=== PATIENT | female | born 1990 | race Two or more races ===

== ENCOUNTER 2020-03-07 11:46 | Inpatient (IN) | payer BC, MEDICAID ==
[~2020-03-07] VITALS: Ht 172.7 cm; Wt 168.7 kg
[~2020-03-07 11:46] MED LIST: ATEN50TA; FERR-7; LISINOPRIL-HCTZ; NAPR250T74; PREN-96 PO
[2020-03-07 12:50] LABS: Basophils # (auto) 0 10 ^3/uL (0-0.2); Basophils % (auto) 0.1 % (0.0-2.0); Eosinophils # (auto) 0 10 ^3/uL (0-0.8); Hematocrit 39.8 % (36.0-46.0); Hemoglobin 13.1 g/dL (12.2-16.2); Lymphocytes # (auto) 0.9 10 ^3/uL (0.4-5.4); Mean Corpuscular Hemoglobin 28.7 pg (28.0-32.0); Mean Corpuscular Volume 87.1 fL (80.0-100.0); Monocytes # (auto) 1.1 10 ^3/uL (0-1.3); Monocytes % (auto) 7.7 % (0.0-12.0); Neutrophils # (auto) 12.6 10 ^3/uL (1.6-8.6); Neutrophils % (auto) 86.2 % (37.0-80.0); Platelet Count (auto) 203 10^3/uL (140-450); Red Blood Cells 4.57 10^6/uL (4.0-5.20); Red Cell Distribution Width 14.7 % (11.8-14.3); White Blood Cell 14.7 10^3/uL (4.4-10.8)
[2020-03-07 13:02] LABS: Albumin 2.9 g/dL (3.4-5.0); Anion Gap 3 (5-15); Blood Urea Nitrogen 7 mg/dL (7-18); Carbon Dioxide 29 mmol/L (21-32); Chloride 102 mmol/L (98-107); Glucose 146 mg/dL (74-106); Potassium 4.1 mmol/L (3.5-5.1); Sodium 134 mmol/L (136-145)
[2020-03-07 13:07] LABS: Alanine Aminotransferase 32 U/L (13-56); Alkaline Phosphatase 78 U/L (45-117); Aspartate Aminotransferase 24 U/L (15-37); BUN/Creatinine Ratio 12.3; Bilirubin, Total 0.3 mg/dL (0.2-1.0); Calcium 7.8 mg/dL (8.5-10.1); GFR African American 159 mL/min; GFR Non-African American 131 mL/min; Total Protein 7.4 g/dL (6.4-8.2)
[2020-03-07] MEDS ORDERED: ZINC SULFATE 220mg CAP or TAB PO ONE (15:00)
[2020-03-07] MEDS ORDERED: DexAMETHasone 4 MG TAB PO ONE (15:00)
[2020-03-07] MEDS ORDERED: ASCORBIC ACID 500 MG TAB PO ONE (15:00)
[2020-03-07] MEDS ORDERED: AZITHROMYCIN 500MG/ 250ML 250 ML IV ONE (15:00)
[2020-03-07] MEDS ORDERED: DOCUSATE CALCIUM 240 MG CAP PO PRN (17:15)
[2020-03-07] MEDS ORDERED: NITROGLYCERIN 0.4 MG SL TAB SL PRN (17:15)
[2020-03-07] MEDS ORDERED: ONDANSETRON HCL 4 MG/2 ML VIAL IV PRN (17:15)
[2020-03-07] MEDS ORDERED: MORPHINE SULF INJ 2 MG/ML SYRINGE 1ML IV PRN (17:15)
[2020-03-07] MEDS ORDERED: KETOROLAC TROMETH 60MG/2ML VIAL IM PRN (17:15)
[2020-03-07] MEDS ORDERED: LORazepam 0.5 MG TAB PO PRN (17:15)
[2020-03-07] MEDS ORDERED: ACETAMINOPHEN 500 MG TAB PO PRN (17:15)
[2020-03-07] MEDS ORDERED: hydrALAZINE HCL 20 MG/ML VL IV PRN (17:15)
[2020-03-07 17:24] LABS: INR 1.03 (0.9-1.15); Partial Thromboplastin Time 30.1 sec (23.0-31.2)
[2020-03-07] MEDS: SODIUM CHLORIDE 0.9% 1,000 ML IV SCH (18:26)
[2020-03-07] MEDS: HYDROcodone-ACET 10/325MG TAB PO PRN ×2 (18:26→21:32)
[2020-03-07] MEDS: DOXYCYCLINE 100MG/250ML 250 ML IV SCH (18:26)
[2020-03-07 19:09] LABS: CRP High Sensitivity 5.93 mg/dL (< 0.3)
[2020-03-07 19:10] LABS: Urine Bacteria FEW /hpf (None Seen); Urine Blood 1+ /uL (Negative); Urine Mucus FEW (None Seen); Urine Specific Gravity 1.022 (1.001-1.035); Urine WBC 12 /hpf (0 - 5)
[2020-03-07 22:00] VITALS: BP 142/91
[2020-03-07] MEDS: BUDESONIDE (INHALATION) 180 MCG IH IN SCH (22:00)
[2020-03-07] MEDS: ALBUTEROL SULF HFA 90MCG INH 200DOSE IN PRN (22:51)
[2020-03-08 00:27] VITALS: BP 142/88
[2020-03-08] MEDS ORDERED: LISI-648 PO (01:24)
[2020-03-08] MEDS ORDERED: HYDR-4833 PO (01:24)
[2020-03-08] MEDS ORDERED: RIVA10TA PO (01:24)
[2020-03-08] MEDS: SODIUM CHLORIDE 0.9% 1,000 ML IV SCH (03:45)
[2020-03-08 05:00] VITALS: BP 139/76
[2020-03-08] MEDS: DOXYCYCLINE 100MG/250ML 250 ML IV SCH (05:55)
[2020-03-08] MEDS: HYDROcodone-ACET 10/325MG TAB PO PRN ×3 (05:56→21:21)
[2020-03-08] MEDS: ALBUTEROL SULF HFA 90MCG INH 200DOSE IN PRN ×2 (06:48→19:56)
[2020-03-08] MEDS: BUDESONIDE (INHALATION) 180 MCG IH IN SCH ×2 (06:48→19:40)
[2020-03-08 07:22] LABS: Basophils # (auto) 0 10 ^3/uL (0-0.2); Basophils % (auto) 0.1 % (0.0-2.0); Eosinophils # (auto) 0 10 ^3/uL (0-0.8); Hematocrit 38.9 % (36.0-46.0); Hemoglobin 12.4 g/dL (12.2-16.2); Lymphocytes # (auto) 0.9 10 ^3/uL (0.4-5.4); Lymphocytes % (auto) 6.9 % (10.0-50.0); Mean Corpuscular Hemoglobin 28.2 pg (28.0-32.0); Mean Corpuscular Hgb Conc. 31.8 g/dL (32.0-36.0); Mean Corpuscular Volume 88.5 fL (80.0-100.0); Monocytes # (auto) 0.8 10 ^3/uL (0-1.3); Monocytes % (auto) 6.7 % (0.0-12.0); Neutrophils # (auto) 10.9 10 ^3/uL (1.6-8.6); Neutrophils % (auto) 86.3 % (37.0-80.0); Platelet Count (auto) 217 10^3/uL (140-450); Red Blood Cells 4.39 10^6/uL (4.0-5.20); Red Cell Distribution Width 15.1 % (11.8-14.3); White Blood Cell 12.6 10^3/uL (4.4-10.8)
[2020-03-08 08:07] LABS: Albumin 2.8 g/dL (3.4-5.0); Calcium 8.2 mg/dL (8.5-10.1); Potassium 4.1 mmol/L (3.5-5.1)
[2020-03-08 08:10] LABS: Bilirubin, Total 0.2 mg/dL (0.2-1.0); Total Protein 7.8 g/dL (6.4-8.2)
[2020-03-08 09:00] VITALS: BP 150/82
[2020-03-08] MEDS ORDERED: LISINOPRIL 10 MG TAB PO SCH (10:00)
[2020-03-08] MEDS ORDERED: AZITHROMYCIN 500MG/ 250ML 250 ML IV SCH (10:00)
[2020-03-08] MEDS: PANTOPRAZOLE 40 MG TAB PO SCH (12:24)
[2020-03-08] MEDS: CHOLECALCIFEROL (VITD3) 2,000 UNIT CAP PO SCH (12:25)
[2020-03-08] MEDS: ZINC SULFATE 220mg CAP or TAB PO SCH (12:25)
[2020-03-08] MEDS: ENOXAPARIN SOD 40 MG/0.4 ML SYRINGE SC SCH ×2 (12:26→12:44)
[2020-03-08] MEDS: ASCORBIC ACID 1,000 MG TAB PO SCH (12:26)
[2020-03-08 13:00] VITALS: BP 138/73
[2020-03-08] MEDS ORDERED: DEXTROSE (50%) 50ML SYRG IV PRN (14:15)
[2020-03-08] MEDS ORDERED: FUROSEMIDE 40 MG/4 ML VIAL IV ONE (14:15)
[2020-03-08] MEDS ORDERED: DexAMETHasone SOD PHOS 10MG/1ML VIAL INJ IV ONE (14:15)
[2020-03-08] MEDS ORDERED: POTASSIUM CHL 10 Meq TABLET PO ONE (14:15)
[2020-03-08] MEDS ORDERED: REMDESIVIR PER PHARMACY 0 ML IV SCH (14:15)
[2020-03-08] MEDS ORDERED: hydrALAZINE HCL 25 MG TAB PO PRN (14:30)
[2020-03-08] MEDS ORDERED: REMDESIVIR 200 MG in NS 210ml LOADING DOSE ADULT IV ONE (15:00)
[2020-03-08] MEDS: InsuLIN REG 1unit/0.01ml Soln (100units/ml) SC SCH ×2 (17:00→21:22)
[2020-03-08 17:06] VITALS: BP 110/60
[2020-03-08] MEDS: ACCU-CHEK COMFORT CURVE STRIP VI SCH ×2 (17:25→21:22)
[2020-03-08] MEDS: ENOXAPARIN SOD 100 MG/1 ML SYRINGE SC SCH (21:22)
[2020-03-08] MEDS: DOXYCYCLINE 100 MG TAB/CAP PO SCH (21:22)
[2020-03-08 23:15] VITALS: BP 128/60
[2020-03-09] MEDS: HYDROcodone-ACET 10/325MG TAB PO PRN ×3 (02:04→20:31)
[2020-03-09] MEDS: MORPHINE SULF INJ 2 MG/ML SYRINGE 1ML IV PRN ×4 (02:47→21:50)
[2020-03-09 05:25] VITALS: BP 132/65
[2020-03-09] MEDS: ACCU-CHEK COMFORT CURVE STRIP VI SCH ×4 (06:35→21:49)
[2020-03-09] MEDS: InsuLIN REG 1unit/0.01ml Soln (100units/ml) SC SCH ×4 (06:36→21:49)
[2020-03-09 07:06] LABS: Basophils # (auto) 0 10 ^3/uL (0-0.2); Basophils % (auto) 0.1 % (0.0-2.0); Eosinophils # (auto) 0 10 ^3/uL (0-0.8); Hemoglobin 11.2 g/dL (12.2-16.2); Lymphocytes % (auto) 7.7 % (10.0-50.0); Mean Corpuscular Hemoglobin 28.2 pg (28.0-32.0); Mean Corpuscular Volume 87.9 fL (80.0-100.0); Monocytes # (auto) 0.9 10 ^3/uL (0-1.3); Monocytes % (auto) 6.7 % (0.0-12.0); Neutrophils # (auto) 11.3 10 ^3/uL (1.6-8.6); Neutrophils % (auto) 85.5 % (37.0-80.0); Platelet Count (auto) 224 10^3/uL (140-450); Red Blood Cells 3.99 10^6/uL (4.0-5.20); Red Cell Distribution Width 15.1 % (11.8-14.3); White Blood Cell 13.2 10^3/uL (4.4-10.8)
[2020-03-09 07:35] LABS: Albumin 2.6 g/dL (3.4-5.0); Magnesium 2.4 mg/dL (1.6-2.6); Potassium 4.1 mmol/L (3.5-5.1)
[2020-03-09 07:39] LABS: BUN/Creatinine Ratio 19.6; Bilirubin, Total 0.3 mg/dL (0.2-1.0)
[2020-03-09] MEDS: ALBUTEROL SULF HFA 90MCG INH 200DOSE IN PRN ×2 (08:43→19:20)
[2020-03-09] MEDS: BUDESONIDE (INHALATION) 180 MCG IH IN SCH ×2 (08:43→19:20)
[2020-03-09 09:00] VITALS: BP 121/69
[2020-03-09] MEDS: FUROSEMIDE 40 MG/4 ML VIAL IV SCH (09:30)
[2020-03-09] MEDS: POTASSIUM CHL 10 Meq TABLET PO SCH (09:30)
[2020-03-09] MEDS: DexAMETHasone SOD PHOS 10MG/1ML VIAL INJ IV SCH (10:00)
[2020-03-09] MEDS: ZINC SULFATE 220mg CAP or TAB PO SCH (10:41)
[2020-03-09] MEDS: DOXYCYCLINE 100 MG TAB/CAP PO SCH ×2 (10:45→21:48)
[2020-03-09] MEDS: ENOXAPARIN SOD 100 MG/1 ML SYRINGE SC SCH (10:45)
[2020-03-09] MEDS: PANTOPRAZOLE 40 MG TAB PO SCH (10:45)
[2020-03-09] MEDS: ASCORBIC ACID 1,000 MG TAB PO SCH (10:45)
[2020-03-09] MEDS: CHOLECALCIFEROL (VITD3) 2,000 UNIT CAP PO SCH (10:45)
[2020-03-09 13:18] VITALS: BP 161/97
[2020-03-09] MEDS: REMDESIVIR 100 MG in SODIUM CHL 0.9% 250 ML IV SCH (15:34)
[2020-03-09 16:53] VITALS: BP 146/86
[2020-03-09 22:00] VITALS: BP 154/93
[2020-03-10] MEDS: MORPHINE SULF INJ 2 MG/ML SYRINGE 1ML IV PRN ×4 (04:34→18:04)
[2020-03-10 05:55] VITALS: BP 138/82
[2020-03-10] MEDS: InsuLIN REG 1unit/0.01ml Soln (100units/ml) SC SCH ×4 (06:19→22:00)
[2020-03-10] MEDS: ACCU-CHEK COMFORT CURVE STRIP VI SCH ×4 (06:20→22:04)
[2020-03-10] MEDS: BUDESONIDE (INHALATION) 180 MCG IH IN SCH ×2 (06:36→19:10)
[2020-03-10] MEDS: ALBUTEROL SULF HFA 90MCG INH 200DOSE IN PRN ×2 (06:37→19:10)
[2020-03-10 07:08] LABS: Basophils # (auto) 0 10 ^3/uL (0-0.2); Eosinophils # (auto) 0 10 ^3/uL (0-0.8); Hemoglobin 11.9 g/dL (12.2-16.2); Lymphocytes % (auto) 12.3 % (10.0-50.0); Mean Corpuscular Hemoglobin 29.2 pg (28.0-32.0); Mean Corpuscular Hgb Conc. 33.1 g/dL (32.0-36.0); Mean Corpuscular Volume 88.3 fL (80.0-100.0); Monocytes % (auto) 12.8 % (0.0-12.0); Neutrophils # (auto) 6.1 10 ^3/uL (1.6-8.6); Neutrophils % (auto) 74.9 % (37.0-80.0); Nucleated Red Blood Cells % 0.1 %; Platelet Count (auto) 229 10^3/uL (140-450); Red Blood Cells 4.07 10^6/uL (4.0-5.20); Red Cell Distribution Width 15.2 % (11.8-14.3); White Blood Cell 8.1 10^3/uL (4.4-10.8)
[2020-03-10 07:21] LABS: Potassium 4.1 mmol/L (3.5-5.1)
[2020-03-10 07:32] LABS: Albumin 2.6 g/dL (3.4-5.0); Bilirubin, Total 0.3 mg/dL (0.2-1.0); Calcium 8.4 mg/dL (8.5-10.1); Total Protein 7.4 g/dL (6.4-8.2)
[2020-03-10 08:40] VITALS: BP 153/93
[2020-03-10] MEDS: POTASSIUM CHL 10 Meq TABLET PO SCH ×2 (10:00→22:04)
[2020-03-10] MEDS ORDERED: RIVAROXABAN 10 MG TAB PO SCH (10:00)
[2020-03-10] MEDS: ENOXAPARIN SOD 100 MG/1 ML SYRINGE SC SCH (10:00)
[2020-03-10] MEDS: FUROSEMIDE 40 MG/4 ML VIAL IV SCH ×2 (10:02→22:04)
[2020-03-10] MEDS: PANTOPRAZOLE 40 MG TAB PO SCH (10:03)
[2020-03-10] MEDS: DOXYCYCLINE 100 MG TAB/CAP PO SCH (10:03)
[2020-03-10] MEDS: ASCORBIC ACID 1,000 MG TAB PO SCH (10:04)
[2020-03-10] MEDS: ZINC SULFATE 220mg CAP or TAB PO SCH (10:04)
[2020-03-10] MEDS: CHOLECALCIFEROL (VITD3) 2,000 UNIT CAP PO SCH (10:04)
[2020-03-10] MEDS: DexAMETHasone SOD PHOS 10MG/1ML VIAL INJ IV SCH ×2 (10:04→22:03)
[2020-03-10 13:00] VITALS: BP 145/96
[2020-03-10] MEDS: REMDESIVIR 100 MG in SODIUM CHL 0.9% 250 ML IV SCH (15:57)
[2020-03-10 16:53] VITALS: BP 137/69
[2020-03-10] MEDS: PIPERACILLIN-TAZOB 3.375GM 100 ML IV SCH (18:04)
[2020-03-10 22:00] VITALS: BP 161/76
[2020-03-11] MEDS: PIPERACILLIN-TAZOB 3.375GM 100 ML IV SCH ×3 (00:08→12:03)
[2020-03-11] MEDS: MORPHINE SULF INJ 2 MG/ML SYRINGE 1ML IV PRN ×4 (00:09→20:07)
[2020-03-11] MEDS: HYDROcodone-ACET 10/325MG TAB PO PRN ×2 (04:49→22:21)
[2020-03-11 05:00] VITALS: BP 158/90
[2020-03-11] MEDS: ACCU-CHEK COMFORT CURVE STRIP VI SCH ×4 (06:16→21:54)
[2020-03-11] MEDS: InsuLIN REG 1unit/0.01ml Soln (100units/ml) SC SCH ×4 (06:16→21:54)
[2020-03-11 08:20] LABS: Potassium 4.2 mmol/L (3.5-5.1)
[2020-03-11 08:26] LABS: Hematocrit 39.1 % (36.0-46.0); Hemoglobin 12.8 g/dL (12.2-16.2); Mean Corpuscular Hemoglobin 28.4 pg (28.0-32.0); Mean Corpuscular Hgb Conc. 32.8 g/dL (32.0-36.0); Mean Corpuscular Volume 86.6 fL (80.0-100.0); Platelet Count (auto) 305 10^3/uL (140-450); Red Blood Cells 4.52 10^6/uL (4.0-5.20); Red Cell Distribution Width 14.4 % (11.8-14.3); White Blood Cell 7.3 10^3/uL (4.4-10.8)
[2020-03-11 08:36] LABS: INR 1.1 (0.9-1.15)
[2020-03-11 08:38] LABS: BUN/Creatinine Ratio 28.1; CRP High Sensitivity 7.72 mg/dL (< 0.3); Calcium 8.8 mg/dL (8.5-10.1); Magnesium 2.8 mg/dL (1.6-2.6)
[2020-03-11 08:45] LABS: Basophils % (manual) 0 (0.0-2.0); Blast Cells 0; Eosinophils % (manual) 0 (0-7); Promyelocytes % 0; Reactive Lymphocytes 0
[2020-03-11 09:00] VITALS: BP 142/75
[2020-03-11] MEDS: ZINC SULFATE 220mg CAP or TAB PO SCH (10:00)
[2020-03-11] MEDS: BUDESONIDE (INHALATION) 180 MCG IH IN SCH ×2 (10:00→19:47)
[2020-03-11] MEDS: ASCORBIC ACID 1,000 MG TAB PO SCH (10:00)
[2020-03-11] MEDS: CHOLECALCIFEROL (VITD3) 2,000 UNIT CAP PO SCH (10:00)
[2020-03-11] MEDS: RIVAROXABAN 10 MG TAB PO SCH (10:58)
[2020-03-11] MEDS: POTASSIUM CHL 10 Meq TABLET PO SCH ×2 (10:59→21:53)
[2020-03-11] MEDS: PANTOPRAZOLE 40 MG TAB PO SCH (10:59)
[2020-03-11] MEDS: FUROSEMIDE 40 MG/4 ML VIAL IV SCH ×2 (11:00→21:53)
[2020-03-11] MEDS: DexAMETHasone SOD PHOS 10MG/1ML VIAL INJ IV SCH ×2 (11:00→21:52)
[2020-03-11 12:06] LABS: Band Neutrophils % (manual) 5; Lymphocytes % (manual) 18 (10.0-50.0); Metamyelocytes % 1; Monocytes % (manual) 8 (0-12); Myelocytes % 3
[2020-03-11 13:00] VITALS: BP 145/73
[2020-03-11] MEDS ORDERED: METOPROLOL TARTRATE 25 MG TAB PO ONE (13:45)
[2020-03-11] MEDS ORDERED: LORazepam 0.5 MG TAB PO PRN (13:45)
[2020-03-11] MEDS: AZITHROMYCIN 250 MG TAB PO SCH (13:48)
[2020-03-11] MEDS: REMDESIVIR 100 MG in SODIUM CHL 0.9% 250 ML IV SCH (15:00)
[2020-03-11 17:00] VITALS: BP 135/72
[2020-03-11] MEDS: ALBUTEROL SULF HFA 90MCG INH 200DOSE IN PRN (19:48)
[2020-03-11 20:00] VITALS: BP 138/67
[2020-03-11] MEDS: diphenhdrAMINE HCL 50 MG/1 ML VL IV SCH (21:52)
[2020-03-11] MEDS: ACETAMINOPHEN 650 mg PER 20.3 mL UD PO SCH (21:53)
[2020-03-11] MEDS: METOPROLOL TARTRATE 25 MG TAB PO SCH (21:53)
[2020-03-11] MEDS: TEMAZEPAM 15 MG CAP PO PRN (21:54)
[2020-03-11] MEDS: TOCILIZUMAB 400 MG in SODIUM CHL 0.9% 80 ML IV SCH (22:21)
[2020-03-12] MEDS: MORPHINE SULF INJ 2 MG/ML SYRINGE 1ML IV PRN ×4 (02:33→22:30)
[2020-03-12] MEDS: HYDROcodone-ACET 10/325MG TAB PO PRN (04:40)
[2020-03-12] MEDS: ACCU-CHEK COMFORT CURVE STRIP VI SCH ×4 (05:53→21:58)
[2020-03-12] MEDS: InsuLIN REG 1unit/0.01ml Soln (100units/ml) SC SCH ×4 (05:53→21:59)
[2020-03-12 06:00] VITALS: BP 120/60
[2020-03-12] MEDS: ALBUTEROL SULF HFA 90MCG INH 200DOSE IN PRN ×2 (06:55→19:50)
[2020-03-12] MEDS: BUDESONIDE (INHALATION) 180 MCG IH IN SCH ×2 (06:55→19:50)
[2020-03-12] MEDS: cefTRIAXone 1GM/50ML D5W 50 ML IV SCH (08:32)
[2020-03-12 09:00] VITALS: BP 141/81
[2020-03-12] MEDS: ACETAMINOPHEN 650 mg PER 20.3 mL UD PO SCH (09:50)
[2020-03-12] MEDS: diphenhdrAMINE HCL 50 MG/1 ML VL IV SCH (09:50)
[2020-03-12] MEDS: DexAMETHasone SOD PHOS 10MG/1ML VIAL INJ IV SCH ×2 (09:50→21:56)
[2020-03-12] MEDS: POTASSIUM CHL 10 Meq TABLET PO SCH ×2 (09:51→21:56)
[2020-03-12] MEDS: FUROSEMIDE 40 MG/4 ML VIAL IV SCH ×2 (09:51→21:59)
[2020-03-12] MEDS: ZINC SULFATE 220mg CAP or TAB PO SCH (09:51)
[2020-03-12] MEDS: ASCORBIC ACID 1,000 MG TAB PO SCH (09:52)
[2020-03-12] MEDS: CHOLECALCIFEROL (VITD3) 2,000 UNIT CAP PO SCH (09:52)
[2020-03-12] MEDS: AZITHROMYCIN 250 MG TAB PO SCH (09:52)
[2020-03-12] MEDS: RIVAROXABAN 10 MG TAB PO SCH (09:52)
[2020-03-12] MEDS: METOPROLOL TARTRATE 25 MG TAB PO SCH ×2 (09:52→21:58)
[2020-03-12] MEDS: PANTOPRAZOLE 40 MG TAB PO SCH (09:52)
[2020-03-12] MEDS: TOCILIZUMAB 400 MG in SODIUM CHL 0.9% 80 ML IV SCH (10:20)
[2020-03-12 13:00] VITALS: BP 123/69
[2020-03-12] MEDS: REMDESIVIR 100 MG in SODIUM CHL 0.9% 250 ML IV SCH (15:21)
[2020-03-12 17:00] VITALS: BP 141/85
[2020-03-12 21:00] VITALS: BP 149/76
[2020-03-13] MEDS: TEMAZEPAM 15 MG CAP PO PRN (00:02)
[2020-03-13] MEDS: MORPHINE SULF INJ 2 MG/ML SYRINGE 1ML IV PRN ×2 (04:42→12:06)
[2020-03-13] MEDS: ACCU-CHEK COMFORT CURVE STRIP VI SCH ×2 (06:58→11:32)
[2020-03-13] MEDS: InsuLIN REG 1unit/0.01ml Soln (100units/ml) SC SCH ×2 (06:59→11:30)
[2020-03-13] MEDS: BUDESONIDE (INHALATION) 180 MCG IH IN SCH (07:35)
[2020-03-13 08:00] VITALS: BP 130/72
[2020-03-13] MEDS: ZINC SULFATE 220mg CAP or TAB PO SCH (10:00)
[2020-03-13] MEDS: CHOLECALCIFEROL (VITD3) 2,000 UNIT CAP PO SCH (10:00)
[2020-03-13] MEDS: ASCORBIC ACID 1,000 MG TAB PO SCH (10:00)
[2020-03-13] MEDS: cefTRIAXone 1GM/50ML D5W 50 ML IV SCH (11:01)
[2020-03-13] MEDS: FUROSEMIDE 40 MG/4 ML VIAL IV SCH (11:02)
[2020-03-13] MEDS: DexAMETHasone SOD PHOS 10MG/1ML VIAL INJ IV SCH (11:02)
[2020-03-13] MEDS: METOPROLOL TARTRATE 25 MG TAB PO SCH (11:03)
[2020-03-13] MEDS: POTASSIUM CHL 10 Meq TABLET PO SCH (11:03)
[2020-03-13] MEDS: PANTOPRAZOLE 40 MG TAB PO SCH (11:03)
[2020-03-13] MEDS: RIVAROXABAN 10 MG TAB PO SCH (11:04)
[2020-03-13] MEDS: AZITHROMYCIN 250 MG TAB PO SCH (11:05)
[2020-03-13] MEDS ORDERED: ASCO10003 PO (12:30)
[2020-03-13] MEDS ORDERED: METH4PAK PO (12:30)
[2020-03-13] MEDS ORDERED: BUDE2SUS3 IN ×2 (12:30→12:42)
[2020-03-13] MEDS ORDERED: PANT40TA2 PO (12:30)
[2020-03-13] MEDS ORDERED: ALBUAER3 IN (12:30)
[2020-03-13] MEDS ORDERED: ZINC220T6 PO (12:30)
[2020-03-13] MEDS ORDERED: CHOL1CAP47 PO (12:30)
[2020-03-13] MEDS ORDERED: DOXY-286 PO (12:30)
[2020-03-13 12:52] VITALS: BP 122/64
== END 2020-03-13 14:46 | disposition home or self-care (01) | DRG 720 ==
LOC: ER 11:46 → EDBD 11:46 → TELE 11:47 → TELE-EAST 21:24
PROVIDERS: ADMIT Family Medicine; ATTEND Internal Medicine
PROC: XW033E5 Introduction of Remdesivir Anti-infective into Peripheral Vein, Percutaneous Approach, New Technology Group 5 (ICD-10-PCS; principal; 2020-03-08)
PROC: XW033H5 Introduction of Tocilizumab into Peripheral Vein, Percutaneous Approach, New Technology Group 5 (ICD-10-PCS; 2020-03-11)
DX: A41.89 Other specified sepsis (principal); U07.1 COVID-19; J96.01 Acute respiratory failure with hypoxia; J12.89 Other viral pneumonia; R73.9 Hyperglycemia, unspecified; E87.1 Hypo-osmolality and hyponatremia; I10 Essential (primary) hypertension; N91.2 Amenorrhea, unspecified; G89.29 Other chronic pain; E88.09 Other disorders of plasma-protein metabolism, not elsewhere classified; D72.810 Lymphocytopenia; D68.69 Other thrombophilia; E55.9 Vitamin D deficiency, unspecified; E66.01 Morbid (severe) obesity due to excess calories; Z68.43 Body mass index [BMI] 50.0-59.9, adult; Z86.718 Personal history of other venous thrombosis and embolism
CPT/HCPCS: 36415; 71045; 80048; 80053; 80061; 81001; 82306; 82728; 82962; 83036; 83605; 83615; 83735; 84443; 84484; 84702; 85025; 85379; 85610; 85730; 86141; 86850; 86900; 86901; 87040; 87086; 87426; 93005; 93970; 94640; 96365; 96366; 99291; G0378; J0696; J1100; J1885; J2543; J3490